=== PATIENT | female | born 1945 | race Caucasian/White ===

== ENCOUNTER 2018-01-05 10:26 | Outpatient (CLI) | payer MEDICARE | END 2018-01-05 10:27 | disposition home or self-care (01) | LOC: BICMAMMO 10:26 | PROVIDERS: ATTEND Family Medicine | DX: Z12.31 Encounter for screening mammogram for malignant neoplasm of breast (principal); R92.1 Mammographic calcification found on diagnostic imaging of breast; M81.0 Age-related osteoporosis without current pathological fracture | CPT/HCPCS: 77063; 77067; 77080 ==

== ENCOUNTER 2019-01-06 13:51 | Outpatient (CLI) | payer MEDICARE ==
--- NOTE | 2019-01-06 14:33 | MMO ---
Bilateral MAMMO Bilat Screen [facility]. CLINICAL HISTORY: Patient is 73 years old and is seen for screening. The patient has no family history of breast cancer. The patient has no personal history of cancer. VIEWS: The views performed were: bilateral craniocaudal with tomosynthesis and bilateral mediolateral oblique with tomosynthesis. FILMS COMPARED: The present examination has been compared to prior imaging studies performed at [facility] on 12/18/2014, 12/20/2015, 01/02/2017 and 01/05/2018. MAMMOGRAM FINDINGS: The breasts are heterogeneously dense, which could obscure a lesion on mammography. There are no suspicious masses, suspicious calcifications, or new areas of architectural distortion. IMPRESSION: THERE IS NO MAMMOGRAPHIC EVIDENCE OF MALIGNANCY. A ROUTINE FOLLOW-UP MAMMOGRAM IN 1 YEAR IS RECOMMENDED. THE RESULTS OF THIS EXAM WERE SENT TO THE PATIENT. ACR BI-RADS Category 1 - Negative MAMMOGRAPHY NOTE: 1. A negative mammogram report should not delay a biopsy if a dominant of clinically suspicious mass is present. 2. Approximately 10% to 15% of breast cancers are not detected by mammography. 3. Adenosis and dense breasts may obscure an underlying neoplasm. Reported by: CHRIS MCKOY MD Electonically Signed: [id number]
--- NOTE | 2019-01-06 15:47 | BD ---
Exam: DEXA Bone Density 01/06/19 HISTORY: Postmenopausal female undergoing screening for osteoporosis. Lumbar Spine: BMD (g/cm2) T-SCORE L1 1.069 0.7 L2 1.005 -0.2 L3 1.119 0.3 L4 0.980 -0.7 L1-L4 1.040 -0.1 Femoral Neck: 0.582 -2.4 Total Femur: 0.690 -2.1 FRAX-WHO fracture risk assessment tool is not reported as the patient is reportedly being treated for osteoporosis. Impression: There is osteopenia within the femoral neck and proximal femur, correlating with a moderately increas ed risk for fracture. POS: [facility]
== END 2019-01-06 13:52 | disposition home or self-care (01) ==
LOC: BICMAMMO 13:51
PROVIDERS: ATTEND Family Medicine
DX: Z12.31 Encounter for screening mammogram for malignant neoplasm of breast (principal); M81.0 Age-related osteoporosis without current pathological fracture; M85.859 Other specified disorders of bone density and structure, unspecified thigh
CPT/HCPCS: 77063; 77067; 77080

== ENCOUNTER 2019-02-01 10:26 | Outpatient (CLI) | payer MEDICARE ==
--- NOTE | 2019-02-01 13:14 | MRI ---
MRI LUMBAR SPINE WITHOUT CONTRAST: INDICATIONS: Back pain. Lumbar spondylosis. COMPARISON: Prior MRI lumbar spine dated 03/27/2016. FINDINGS: Degenerative disk changes at all levels of the lumbar spine. Degenerative endplate changes are seen t hroughout. These findings are stable from 2016. There is a posterior listhesis at T12-L1, which was p resent previously and is associated with a diffuse disk bulge. Findings at each level are described: T12-L1: Mild posterior listhesis as described above. Diffuse broad-based disk bulge flattens the thec al sac. No significant impingement on the conus. Minimal central canal stenosis. Right foraminal encr oachment due to asymmetric bulge and hypertrophic change. L1-L2: Diffuse disk bulge flattens the thecal sac. Facet arthrosis and hypertrophy. No significant ce ntral canal stenosis. No significant foraminal stenosis. L2-L3: Broad-based disk bulge flattens the thecal sac. Facet hypertrophy. Mild central canal stenosis . Left foraminal stenosis secondary to disk bulge and hypertrophic change. L3-L4: Broad-based disk bulge is similar to the prior exam. Facet hypertrophy. Mild central canal flora nosis. Left foraminal stenosis due to disk bulge and hypertrophic change. L4-L5: Broad-based disk bulge centrally with asymmetric bulge to the right. Facet hypertrophy. Minima l central canal stenosis. Right foraminal stenosis secondary to this asymmetric bulge and facet hyper trophy. L5-S1: Mild diffuse disk bulge. Facet hypertrophy. No significant central canal stenosis. Left forami nal encroachment and stenosis secondary to disk osteophyte complex projecting to the left and facet h ypertrophy. IMPRESSION: Multilevel degenerative changes with posterior disk bulges at all levels, as described above. Mild po sterior listhesis at T12-L1. The findings appear relatively stable from 03/27/2016 with findings at e ach level described above. POS: [facility]
== END 2019-02-01 10:27 | disposition home or self-care (01) ==
LOC: TBSIIMAG 10:26
PROVIDERS: ATTEND Neurological Surgery
DX: M47.816 Spondylosis without myelopathy or radiculopathy, lumbar region (principal); M54.5 Low back pain; M51.26 Other intervertebral disc displacement, lumbar region; M51.27 Other intervertebral disc displacement, lumbosacral region; M47.817 Spondylosis without myelopathy or radiculopathy, lumbosacral region; M43.15 Spondylolisthesis, thoracolumbar region
CPT/HCPCS: 72148

== ENCOUNTER 2021-01-11 13:30 | Outpatient (CLI) | payer MEDICARE | END 2021-01-11 13:31 | disposition home or self-care (01) | LOC: BICMAMMO 13:30 | PROVIDERS: ATTEND Family Medicine | DX: Z12.31 Encounter for screening mammogram for malignant neoplasm of breast (principal); M81.0 Age-related osteoporosis without current pathological fracture; M85.852 Other specified disorders of bone density and structure, left thigh; M85.851 Other specified disorders of bone density and structure, right thigh | CPT/HCPCS: 77063; 77067; 77080 ==

== ENCOUNTER 2021-12-10 14:24 | Outpatient (CLI) | payer MEDICARE | END 2021-12-10 14:25 | disposition home or self-care (01) | LOC: TBSIIMAG 14:24 | PROVIDERS: ATTEND Orthopaedic Surgery | DX: M20.12 Hallux valgus (acquired), left foot (principal); M79.89 Other specified soft tissue disorders; M21.172 Varus deformity, not elsewhere classified, left ankle ==

== ENCOUNTER 2023-02-13 13:05 | Outpatient (CLI) | payer MEDICARE | END 2023-02-13 13:06 | disposition home or self-care (01) | LOC: BICMAMMO 13:05 | PROVIDERS: ATTEND Family Medicine | DX: Z12.31 Encounter for screening mammogram for malignant neoplasm of breast (principal); M81.0 Age-related osteoporosis without current pathological fracture; M85.851 Other specified disorders of bone density and structure, right thigh; M85.852 Other specified disorders of bone density and structure, left thigh | CPT/HCPCS: 77063; 77067; 77080 ==

== ENCOUNTER 2024-02-16 12:27 | Outpatient (CLI) | payer MEDICARE | END 2024-02-16 12:28 | disposition home or self-care (01) | LOC: BICMAMMO 12:27 | PROVIDERS: ATTEND Family Medicine | DX: Z12.31 Encounter for screening mammogram for malignant neoplasm of breast (principal) | CPT/HCPCS: 77063; 77067 ==